=== PATIENT | male | born 1955 | race Two or more races ===

== ENCOUNTER 2017-07-15 11:52 | Emergency (ER) | payer OTHER ==
[~2017-07-15] VITALS: Ht 180.3 cm; Wt 101.6 kg
--- NOTE | 2017-07-15 11:55 | NUR ---
[id number] C/O COUGH X 1MONTH, STATING HE'S "FEELING SICK." A/O X 4. BREATHING EVEN AND UNLABORED. NO SOB, NAD, VITALS STABLE. SAFETY AND COMFORT MEASURES IN PLACE. AWAITING MD ORDERS.
--- NOTE | 2017-07-15 12:03 | NUR ---
CALLED PHYSICIST [facility] FOR PSYCH EVAL AND HE SAID TO CALL BACK ONCE THE LABS AND THE URINE SCREEN ARE BACK.
--- NOTE | 2017-07-15 12:03 | NUR ---
URINE OBTAINED AND SENT TO LAB.
--- NOTE | 2017-07-15 12:05 | NUR ---
ENDLESS TRACK VEHICLE SUPERVISOR AT BEDSIDE FOR BLOOD DRAW.
[2017-07-15 12:14] LABS: APPEARANCE,URINE Slightly Cloudy (CLEAR); BILIRUBIN,URINE SMALL (NEGATIVE); BLOOD, URINE Negative Ery/uL (NEGATIVE); KETONES,URINE Trace (NEGATIVE); LEUKOCYTE ESTERASE ,URINE Negative (NEGATIVE); NITRITE, URINE Negative (NEGATIVE); PROTEIN,URINE 30 mg/dl (NEGATIVE); UGLUCOSE Negative (NEGATIVE); UROBILINOGEN,URINE 0.2 EU/dL (0.2)
[2017-07-15 12:17] LABS: COLOR,URINE Dark Yellow (YELLOW)
[2017-07-15 12:17] LABS: BASOPHILS # (AUTO) 0.1 /CMM (0.0-0.2); BASOPHILS % (AUTO) 0.5 % (0.0-2.0); EOSINOPHILS % (AUTO) 1.1 % (0.0-6.0); HEMATOCRIT 46 % (39-51); HEMOGLOBIN 15.7 g/dL (13.5-17.5); LYMPHOCYTES # (AUTO) 2.5 /CMM (0.8-4.8); LYMPHOCYTES % (AUTO) 19.3 % (20.0-44.0); MEAN CORPUSCULAR HGB CONC 34 g/dl (31.0-36.0); MEAN CORPUSCULAR VOLUME 86 fL (80-96); MONOCYTES # (AUTO) 0.9 /CMM (0.1-1.30); MONOCYTES % (AUTO) 6.9 % (2.0-12.0); NEUTROPHILS # (AUTO) 9.4 /CMM (1.8-8.9); NEUTROPHILS % (AUTO) 72.2 % (43.0-81.0); PLATELET COUNT (AUTO) 236 /CMM (150-450); RDW COEFFICIENT OF VARIATION 14.7 (11.5-15.0); RED BLOOD CELL COUNT(AUTO) 5.37 MIL/uL (4.5-6.0)
[2017-07-15 12:19] LABS: BACTERIA,URINE None seen /HPF (None Seen); MUCUS,URINE Few /LPF (None Seen); RBC,URINE 0-3 /HPF (0-2); SQUAMOUS EPITHELIAL CELL,UR Few /HPF (None Seen)
[2017-07-15 12:22] LABS: CARBON DIOXIDE 27 mmol/L (21-32); CHLORIDE 103 mmol/L (98-107); CREATININE 0.9 mg/dL (0.6-1.3); GLUCOSE 126 mg/dL (74-106); SODIUM SERUM 138 mmol/L (136-145); UREA NITROGEN, BLOOD 17 mg/dL (7-18)
[2017-07-15 12:27] LABS: ALANINE AMINOTRANSFERASE 30 U/L (12-78); ALBUMIN 3.8 g/dL (3.4-5.0); ALKALINE PHOSPHATASE 80 U/L (46-116); ASPARTATE AMINOTRANSFERASE 14 U/L (15-37); BILIRUBIN,DIRECT 0.1 mg/dL (0.0-0.2); BILIRUBIN,TOTAL 0.4 mg/dL (0.2-1.0); TOTAL PROTEIN, SERUM 7.5 g/dL (6.4-8.2)
[2017-07-15 12:28] LABS: ACETAMINOPHEN 0 ug/ml (10-30); ALCOHOL, BLOOD < 3 mg/dL (0-0); SALICYLATE 2.3 mg/dL (2.8-20.0)
--- NOTE | 2017-07-15 13:17 | NUR ---
SPOKE TO CECI AT [facility] AND HE SAID THAT THE PT WAS OKAY TO RETURN BACK TO THEIR FACILITY.
[2017-07-15 14:59] VITALS: BP 132/81
--- NOTE | 2017-07-15 15:01 | NUR ---
Patient discharged to community [facility] in stable condition. Written and verbal after care instructions given. Patient verbalizes understanding of instruction. Patient left via taxi.
== END 2017-07-15 15:03 | disposition home or self-care (01) ==
LOC: ER 11:54
DX: F20.9 Schizophrenia, unspecified (principal); E11.9 Type 2 diabetes mellitus without complications
CPT/HCPCS: 36415; 80048-TC; 80076-TC; 80305; 81000-TC; 85025-TC; A4606; G0480; Z7610

== ENCOUNTER 2019-03-06 14:04 | Emergency (ER) | payer OTHER ==
[~2019-03-06] VITALS: Ht 177.8 cm; Wt 90.7 kg
[2019-03-06 15:00] LABS: BASOPHILS # (AUTO) 0.1 /CMM (0.0-0.2); BASOPHILS % (AUTO) 1.1 % (0.0-2.0); CALCIUM, SERUM 8.8 mg/dL (8.5-10.1); CARBON DIOXIDE 27 mmol/L (21-32); CHLORIDE 102 mmol/L (98-107); EOSINOPHILS % (AUTO) 1.8 % (0.0-6.0); GLUCOSE 215 mg/dL (74-106); HEMATOCRIT 44 % (39-51); HEMOGLOBIN 14.9 g/dL (13.5-17.5); LYMPHOCYTES # (AUTO) 2.9 /CMM (0.8-4.8); MEAN CORPUSCULAR HGB CONC 34 g/dl (31.0-36.0); MEAN CORPUSCULAR VOLUME 89 fL (80-96); MONOCYTES # (AUTO) 0.8 /CMM (0.1-1.30); NEUTROPHILS # (AUTO) 7.6 /CMM (1.8-8.9); NEUTROPHILS % (AUTO) 65.1 % (43.0-81.0); PLATELET COUNT (AUTO) 211 /CMM (150-450); POTASSIUM 3.9 mmol/L (3.5-5.1); RED BLOOD CELL COUNT(AUTO) 4.93 MIL/uL (4.5-6.0); SODIUM SERUM 137 mmol/L (136-145); UREA NITROGEN, BLOOD 17 mg/dL (7-18); WHITE BLOOD COUNT (AUTO) 11.7 K/uL (4.3-11.0)
[2019-03-06 16:04] LABS: APPEARANCE,URINE Clear (CLEAR); BILIRUBIN,URINE Negative (NEGATIVE); BLOOD, URINE Negative Ery/uL (NEGATIVE); COLOR,URINE Yellow (YELLOW); KETONES,URINE Negative (NEGATIVE); LEUKOCYTE ESTERASE ,URINE Negative (NEGATIVE); NITRITE, URINE Negative (NEGATIVE); PROTEIN,URINE Negative (NEGATIVE); UGLUCOSE 100 MG/DL mg/dL (NEGATIVE); UROBILINOGEN,URINE 0.2 EU/dL (0.2)
[2019-03-06] MEDS ORDERED: METFORMIN 500 MG TABLET PO ONE (17:00)
[2019-03-06] MEDS ORDERED: METFORMIN XR 500 MG TAB.SR.24H PO ONE (17:07)
[2019-03-06 17:24] LABS: ALCOHOL, BLOOD < 3 mg/dL (0-0); SALICYLATE < 2.8 mg/dL (2.8-20.0)
--- NOTE | 2019-03-06 21:17 | NUR ---
CALLED FOR PSYCH EVSHAMA. WAS TOLD TO CALL ONCOMING EGG BREAKER AFTER 10PM
--- NOTE | 2019-03-07 02:23 | NUR ---
Patient is resting comfortably in bed with eyes closed. Easily aroused. VSS
[2019-03-07 06:56] VITALS: BP 121/87
--- NOTE | 2019-03-07 06:56 | NUR ---
Patient given written and verbal discharge instructions. Patient verbalizes understanding of instructions. Patient is ambulatory with steady gait. Refuses offer of nursing home placement. Patient given list of available shelters in surrounding area.
== END 2019-03-07 06:57 | disposition home or self-care (01) ==
LOC: ER 14:13
DX: F22 Delusional disorders (principal); F20.9 Schizophrenia, unspecified; R07.89 Other chest pain; E11.9 Type 2 diabetes mellitus without complications; F32.9 Major depressive disorder, single episode, unspecified; F17.200 Nicotine dependence, unspecified, uncomplicated
CPT/HCPCS: 36415; 71045-TC; 80048-TC; 80305; 81000-TC; 82010-TC; 84484-TC; 85025-TC; G0480

== ENCOUNTER 2019-11-12 09:24 | Emergency (ER) | payer MEDICARE, OTHER ==
[~2019-11-12] VITALS: Ht 182.9 cm; Wt 98.9 kg
--- NOTE | 2019-11-12 09:40 | NUR ---
[id number], FROM [facility], C/O ABDOMINAL PAIN X3 DAYS, -N/V. PT AAOX3, VSS. RR EVEN & UNLABORED. DENIES CP, SOB, DIZZINESS AT THIS TIME. AWAITING EVAL BY FLACO. WILL CONT TO MONITOR.
--- NOTE | 2019-11-12 10:07 | NUR ---
PT TO CT VIA [facility].
[2019-11-12] MEDS ORDERED: FAMOTIDINE/PF INJ 20 MG/2 ML VIAL IV ONE (10:20)
[2019-11-12] MEDS ORDERED: ONDANSETRON HCL/PF 4 MG/2 ML VIAL ONE (10:20)
[2019-11-12 10:44] LABS: BASOPHILS # (AUTO) 0.1 /CMM (0.0-0.2); BASOPHILS % (AUTO) 0.3 % (0.0-2.0); EOSINOPHILS % (AUTO) 0.1 % (0.0-6.0); HEMATOCRIT 52 % (39-51); HEMOGLOBIN 17.6 g/dL (13.5-17.5); LYMPHOCYTES # (AUTO) 1.9 /CMM (0.8-4.8); LYMPHOCYTES % (AUTO) 7.4 % (20.0-44.0); MEAN CORPUSCULAR HGB CONC 34 g/dl (31.0-36.0); MEAN CORPUSCULAR VOLUME 90 fL (80-96); MONOCYTES # (AUTO) 1.5 /CMM (0.1-1.30); MONOCYTES % (AUTO) 5.9 % (2.0-12.0); NEUTROPHILS # (AUTO) 21.9 /CMM (1.8-8.9); NEUTROPHILS % (AUTO) 86.3 % (43.0-81.0); PLATELET COUNT (AUTO) 207 /CMM (150-450); RED BLOOD CELL COUNT(AUTO) 5.81 MIL/uL (4.5-6.0); WHITE BLOOD COUNT (AUTO) 25.3 K/uL (4.3-11.0)
[2019-11-12] MEDS: IV NS 0.9% 1,000 ML BAG IV ONE (10:47)
[2019-11-12] MEDS: FAMOTIDINE/PF INJ 20 MG/2 ML VIAL IV ONE (10:48)
[2019-11-12] MEDS: ONDANSETRON HCL/PF 4 MG/2 ML VIAL IVP ONE (10:48)
--- NOTE | 2019-11-12 10:49 | NUR ---
KILN MECHANIC AT BEDSIDE
--- NOTE | 2019-11-12 10:50 | NUR ---
PICKED UP BY HEAT TREATER APPRENTICE VIA [facility] FOR CT SCAN.
[2019-11-12 10:53] LABS: CALCIUM, SERUM 9.5 mg/dL (8.5-10.1); CREATININE 1.1 mg/dL (0.6-1.3); POTASSIUM 5.1 mmol/L (3.5-5.1)
[2019-11-12 10:59] LABS: ALBUMIN 4.9 g/dL (3.4-5.0); BILIRUBIN,DIRECT 0.1 mg/dL (0.0-0.2); BILIRUBIN,TOTAL 1.1 mg/dL (0.2-1.0); TOTAL PROTEIN, SERUM 8.2 g/dL (6.4-8.2)
[2019-11-12] MEDS ORDERED: MORPHINE SULFATE INJ 4 MG/ML DISP.SYRIN ONE ×2 (11:03→13:39)
[2019-11-12] MEDS ORDERED: TDAP [DIPH/PERTUSSIS/TET] 0.5 ML VIAL IM ONE (11:03)
[2019-11-12] MEDS: TDAP [DIPH/PERTUSSIS/TET] 0.5 ML VIAL IM ONE (11:17)
[2019-11-12] MEDS: MORPHINE SULFATE INJ 2 MG/ML DISP.SYRIN IV ONE ×2 (11:17→13:43)
--- NOTE | 2019-11-12 12:00 | NUR ---
[facility] CALLED AND PRESENTED CASE TO [facility],CLINICALS AND FACESHEET FAXED TO [phone]
--- NOTE | 2019-11-12 12:15 | NUR ---
[facility] CALLED AND PRESENTED CASE TO ROMELIA RN, CLINICALS AND FACESHEET FAXED TO [phone] REQUESTED
--- NOTE | 2019-11-12 12:15 | NUR ---
CALLED [facility], SPOKE TO CLARI, WHO TRANSFERED ME TO ER. [facility] CALL BACK WHEN AVAILABLE
--- NOTE | 2019-11-12 12:17 | NUR ---
Marsha canales in [facility] - 11/12/19 at 1258 by WHITLEY JACOB [facility] TRANSFER REQUEST
--- NOTE | 2019-11-12 12:21 | NUR ---
[place] BACK [place] [facility] [place] [facility] JAMES
--- NOTE | 2019-11-12 12:31 | NUR ---
CALL BACK FROM [facility], TRAUMA SURGEON REFUSED
--- NOTE | 2019-11-12 13:02 | NUR ---
CALL BACK FROM [facility] WITH TX INFO: ACCEPTED BY DR FRANKIE GONG (TRAUMA SURGEON) DR GODWIN GIL (ER MD) [facility] REPORT TO [phone] CASE #: [id number]
--- NOTE | 2019-11-12 13:06 | NUR ---
[facility] TO [facility] ER ETA [phone]
[2019-11-12 13:44] VITALS: BP 158/94
--- NOTE | 2019-11-12 14:02 | NUR ---
REPORT GIVEN TO ABY ROSARIO AT [facility] ER FOR [place].
--- NOTE | 2019-11-12 14:33 | NUR ---
PT ENROUTE [facility]IA [facility] TO [facility] ED FOR CONT OF CARE.
== END 2019-11-12 14:35 | disposition short-term general hospital (02) ==
LOC: ER 09:33
DX: S22.41XA Multiple fractures of ribs, right side, initial encounter for closed fracture (principal); S50.311A Abrasion of right elbow, initial encounter; S29.8XXA Other specified injuries of thorax, initial encounter; J93.9 Pneumothorax, unspecified; R10.13 Epigastric pain; E11.9 Type 2 diabetes mellitus without complications; F32.9 Major depressive disorder, single episode, unspecified; F20.9 Schizophrenia, unspecified; F17.200 Nicotine dependence, unspecified, uncomplicated; X58.XXXA Exposure to other specified factors, initial encounter; Y93.89 Activity, other specified; Y92.89 Other specified places as the place of occurrence of the external cause; Y99.8 Other external cause status
CPT/HCPCS: 36415; 71250; 74176; 80048; 80076; 82550; 83690; 85025; 90471; 90715; 93005; 96361; 96374; 96375; 96376; 99291; J2270 ×2; J2405; J3490; J7030